=== PATIENT | female | born 1975 | race Caucasian/White ===

== ENCOUNTER 2017-09-02 15:08 | Observation (INO) | payer BC ==
[~2017-09-02] VITALS: Ht 172.7 cm; Wt 105.2 kg
[2017-09-02] MEDS ORDERED: PREN1TAB80 PO (15:26)
[2017-09-02 15:28] VITALS: BP 110/67
== END 2017-09-02 16:30 | disposition home or self-care (01) ==
LOC: 4S 15:25
PROVIDERS: ADMIT Specialist; ATTEND Specialist
DX: O09.523 Supervision of elderly multigravida, third trimester (principal); Z3A.36 36 weeks gestation of pregnancy
CPT/HCPCS: 59025; G0378

== ENCOUNTER 2017-09-15 15:00 | Observation (INO) | payer BC ==
[~2017-09-15] VITALS: Ht 172.7 cm; Wt 106.6 kg
[~2017-09-15 15:00] MED LIST: PREN1TAB80 PO
[2017-09-15 15:09] VITALS: BP 114/68
== END 2017-09-15 16:10 | disposition home or self-care (01) ==
LOC: 4S 15:00
PROVIDERS: ADMIT Specialist; ATTEND Specialist
DX: O26.893 Other specified pregnancy related conditions, third trimester (principal); O09.523 Supervision of elderly multigravida, third trimester; R10.30 Lower abdominal pain, unspecified; Z3A.38 38 weeks gestation of pregnancy
CPT/HCPCS: 59025; G0378

== ENCOUNTER 2017-09-22 10:47 | Inpatient (IN) | payer BC ==
[~2017-09-22] VITALS: Ht 172.7 cm; Wt 110.7 kg
[2017-09-22] MEDS ORDERED: RINGERS SOLUTION,LACTATED 1,000 ML IV PRN (10:48)
[2017-09-22] MEDS ORDERED: METHYLERGONOVINE MALEATE 0.2 MG/ML VIAL IM PRN (11:00)
[2017-09-22] MEDS ORDERED: LIDOCAINE HCL/PF 1% 30 ML VIAL INJ PRN (11:00)
[2017-09-22 11:16] VITALS: BP 112/61
[2017-09-22] MEDS: RINGERS SOLUTION,LACTATED 1,000 ML IV SCH ×3 (11:54→23:09)
[2017-09-22] MEDS ORDERED: OXYTOCIN 30 UNITS/LACT RINGERS 500 ML IV PRN (12:03)
[2017-09-22 13:29] LABS: BASOPHILS % (AUTO) 0.4 % (0.0-2.0); EOSINOPHILS % (AUTO) 0.4 % (1.0-6.0); HEMATOCRIT 36.4 % (36-46); HEMOGLOBIN 12.5 g/dL (12.0-16.0); LYMPHOCYTES # (AUTO) 1.1 K/uL (1.0-4.8); LYMPHOCYTES % (AUTO) 14.9 % (22.0-44.0); MEAN CORPUSCULAR HEMOGLOBIN 30.3 pg (26.0-34.0); MEAN CORPUSCULAR HGB CONC 34.3 G/dL (31.0-37.0); MEAN CORPUSCULAR VOLUME 88 fL (80-100); MONOCYTES # (AUTO) 0.4 K/uL (0.1-1.0); MONOCYTES % (AUTO) 5.2 % (2.0-9.0); NEUTROPHILS # (AUTO) 5.8 K/uL (1.8-7.7); NEUTROPHILS % (AUTO) 79.1 % (40.0-70.0); RED BLOOD CELL COUNT(AUTO) 4.12 MIL/uL (4.00-5.20); RED CELL DISTRIBUTION WIDTH 14.6 % (11.5-14.5); WHITE BLOOD COUNT (AUTO) 7.4 K/uL (4.5-11.0)
[2017-09-22] MEDS ORDERED: LIDOCAINE HCL/PF 2% 5 ML VIAL ONE ×3 (18:15→22:36)
[2017-09-22] MEDS ORDERED: FentaNYL/BUPIV 0.125%/NS/PF 200 ML ED ONE (18:15)
[2017-09-22] MEDS ORDERED: FentaNYL/BUPIV 0.125%/NS/PF 200 ML ED PRN (18:41)
[2017-09-22] MEDS ORDERED: NALBUPHINE HCL 10 MG/ML VIAL IVP PRN (18:45)
[2017-09-22] MEDS ORDERED: PROMETHAZINE HCL 12.5 MG in SODIUM CHLORIDE 0.9% 50 ML IV PRN (18:45)
[2017-09-22] MEDS ORDERED: ONDANSETRON HCL 4 MG/2 ML VIAL IVP PRN (18:45)
[2017-09-22] MEDS ORDERED: DiphenhydrAMINE HCL 50 MG/ML VIAL IVP PRN (18:45)
[2017-09-23] MEDS: RINGERS SOLUTION,LACTATED 1,000 ML IV SCH ×2 (02:39→08:15)
[2017-09-23] MEDS ORDERED: OXYTOCIN 30 UNITS/LACT RINGERS 500 ML IV ONE (07:54)
[2017-09-23] MEDS ORDERED: FentaNYL/BUPIV 0.125%/NS/PF 200 ML ED ONE (08:21)
[2017-09-23] MEDS ORDERED: LIDOCAINE HCL 2%/EPI 1:200,000/PF 20 ML VIAL ONE (10:07)
[2017-09-23] MEDS ORDERED: FentaNYL CITRATE-PF 100 MCG/2 ML VIAL ONE ×2 (10:07→12:31)
[2017-09-23] MEDS ORDERED: BUPIVACAINE HCL/PF 0.25% 10 ML VIAL ONE (10:07)
[2017-09-23] MEDS ORDERED: CITRIC ACID/SODIUM CITRATE 30 ML SOLUTION UDCUP PO ONE (11:00)
[2017-09-23] MEDS ORDERED: METOCLOPRAMIDE HCL 5 MG/ML 2 ML VIAL IVP ONE (11:00)
[2017-09-23] MEDS ORDERED: CeFAZolin 2 GM/DEXTROSE 50 ML IV ONE (12:31)
[2017-09-23] MEDS ORDERED: RINGERS SOLUTION,LACTATED 1,000 ML IV ONE ×2 (12:32→13:31)
[2017-09-23] MEDS ORDERED: MORPHINE SULFATE/PF 0.5 MG/ML 10 ML AMP ONE (12:32)
[2017-09-23] MEDS ORDERED: GUM MASTIC/STORAX/MSAL/ALCOHOL LIQUID 0.67 ML VIAL TP ONE ×2 (13:26→13:28)
[2017-09-23] MEDS ORDERED: PROMETHAZINE HCL 12.5 MG in SODIUM CHLORIDE 0.9% 50 ML IV PRN (13:45)
[2017-09-23] MEDS ORDERED: KETOROLAC TROMETHAMINE 30 MG/ML VIAL IVP ONE (13:45)
[2017-09-23] MEDS ORDERED: MEPERIDINE-PF 25 MG/ML SYRINGE IVP PRN (13:45)
[2017-09-23] MEDS ORDERED: ACETAMINOPHEN 1000 MG/ISO-OSM 100 ML IV ONE (13:45)
[2017-09-23] MEDS ORDERED: METHYLERGONOVINE MALEATE 0.2 MG TABLET PO PRN (13:45)
[2017-09-23] MEDS ORDERED: NALBUPHINE HCL 10 MG/ML VIAL IVP PRN ×3 (13:45)
[2017-09-23] MEDS ORDERED: DiphenhydrAMINE HCL 50 MG/ML VIAL IVP PRN ×2 (13:45)
[2017-09-23] MEDS ORDERED: ONDANSETRON HCL 4 MG/2 ML VIAL IVP PRN ×2 (13:45)
[2017-09-23] MEDS ORDERED: NALOXONE HCL 0.4 MG/ML VIAL IVP PRN (13:45)
[2017-09-23] MEDS ORDERED: LANOLIN 7 GM OINTMENT TP PRN (13:45)
[2017-09-23] MEDS ORDERED: DEXAMETHASONE SOD PHOS 4 MG/ML VIAL IVP PRN (13:45)
[2017-09-23] MEDS ORDERED: DiphenhydrAMINE HCL 50 MG/ML VIAL IM PRN (13:45)
[2017-09-23] MEDS ORDERED: FentaNYL CITRATE-PF 100 MCG/2 ML VIAL IVP PRN ×4 (13:45)
[2017-09-23] MEDS: DEXTROSE 5%-LACTATED RINGERS 1,000 ML IV SCH ×2 (15:30→23:31)
[2017-09-23] MEDS ORDERED: METHYLERGONOVINE MALEATE 0.2 MG/ML VIAL ONE (19:03)
[2017-09-23] MEDS ORDERED: OXYGEN THERAPY IH SCH ×4 (20:00)
[2017-09-23] MEDS: KETOROLAC TROMETHAMINE 30 MG/ML VIAL IVP PRN (21:22)
[2017-09-23] MEDS: CeFAZolin 2 GM/DEXTROSE 50 ML IV SCH (21:25)
[2017-09-23] MEDS: ACETAMINOPHEN 1000 MG/ISO-OSM 100 ML IV PRN (23:31)
[2017-09-24] MEDS: KETOROLAC TROMETHAMINE 30 MG/ML VIAL IVP PRN (03:32)
[2017-09-24] MEDS ORDERED: ONDANSETRON HCL 4 MG/2 ML VIAL IVP ONE (04:56)
[2017-09-24] MEDS ORDERED: OXYTOCIN 10 UNITS/ML VIAL IM ONE (04:56)
[2017-09-24] MEDS ORDERED: PHENYLEPHRINE HCL 10 MG/ML VIAL IVP ONE (04:56)
[2017-09-24] MEDS: CeFAZolin 2 GM/DEXTROSE 50 ML IV SCH (05:51)
[2017-09-24 06:14] LABS: BASOPHILS % (AUTO) 0.2 % (0.0-2.0); EOSINOPHILS % (AUTO) 0.7 % (1.0-6.0); HEMATOCRIT 25.3 % (36-46); HEMOGLOBIN 8.6 g/dL (12.0-16.0); LYMPHOCYTES # (AUTO) 1.1 K/uL (1.0-4.8); LYMPHOCYTES % (AUTO) 15.7 % (22.0-44.0); MEAN CORPUSCULAR HEMOGLOBIN 30.3 pg (26.0-34.0); MEAN CORPUSCULAR HGB CONC 34.1 G/dL (31.0-37.0); MEAN CORPUSCULAR VOLUME 89 fL (80-100); MONOCYTES # (AUTO) 0.6 K/uL (0.1-1.0); NEUTROPHILS # (AUTO) 5.5 K/uL (1.8-7.7); NEUTROPHILS % (AUTO) 75.4 % (40.0-70.0); RED BLOOD CELL COUNT(AUTO) 2.85 MIL/uL (4.00-5.20); RED CELL DISTRIBUTION WIDTH 15.1 % (11.5-14.5); WHITE BLOOD COUNT (AUTO) 7.3 K/uL (4.5-11.0)
[2017-09-24] MEDS: ACETAMINOPHEN 1000 MG/ISO-OSM 100 ML IV PRN (07:39)
[2017-09-24] MEDS: SENNA/DOCUSATE SODIUM 187-50 MG TABLET PO PRN ×2 (07:39→19:35)
[2017-09-24] MEDS: OxyCODONE HCL/ACETAMINOPHEN 5-325 MG TABLET PO PRN ×4 (10:20→21:22)
[2017-09-24] MEDS: IBUPROFEN 800 MG TABLET PO PRN ×2 (10:20→19:35)
[2017-09-24] MEDS: SOD FERRIC GLUC COMPLX/SUCROSE 125 MG in SODIUM CHLORIDE 0.9% 100 ML IV SCH (14:44)
[2017-09-24] MEDS: MAGNESIUM HYDROXIDE SUSPENSION 30 ML UDCUP PO PRN (19:35)
[2017-09-25] MEDS: OxyCODONE HCL/ACETAMINOPHEN 5-325 MG TABLET PO PRN ×3 (03:19→13:31)
[2017-09-25] MEDS: IBUPROFEN 800 MG TABLET PO PRN ×2 (07:09→13:30)
[2017-09-25] MEDS: SENNA/DOCUSATE SODIUM 187-50 MG TABLET PO PRN (08:05)
[2017-09-25] MEDS: MAGNESIUM HYDROXIDE SUSPENSION 30 ML UDCUP PO PRN (08:05)
[2017-09-25] MEDS ORDERED: SODIUM CHLORIDE 0.9% 0 ML ONE (14:03)
[2017-09-25] MEDS: SOD FERRIC GLUC COMPLX/SUCROSE 125 MG in SODIUM CHLORIDE 0.9% 100 ML IV SCH (14:05)
[2017-09-25] MEDS ORDERED: FERR-89 PO (16:14)
[2017-09-25] MEDS ORDERED: DSS100 PO (16:18)
[2017-09-25] MEDS ORDERED: IBUP-2071 PO (16:20)
[2017-09-25] MEDS ORDERED: PERCT PO (16:23)
== END 2017-09-25 17:30 | disposition home or self-care (01) | DRG 766 ==
LOC: 4S 10:47 → OBSVTOIN 10:47 → 4S 09-23 14:54
PROVIDERS: ADMIT Specialist; ATTEND Specialist
PROC: 10D00Z1 Extraction of Products of Conception, Low, Open Approach (ICD-10-PCS; principal; 2017-09-23)
DX: O62.2 Other uterine inertia (principal); O09.523 Supervision of elderly multigravida, third trimester; Z37.0 Single live birth; Z3A.39 39 weeks gestation of pregnancy; Z91.013 Allergy to seafood
CPT/HCPCS: 86850; 86900; 86901; J0131; J0690; J1885; J2210; J2274; J2370; J2405; J2590; J2765; J2916; J3010; J3490; J7050; J7120